=== PATIENT | female | born 1990 | race Two or more races ===

== ENCOUNTER 2017-07-15 23:49 | Emergency (ER) | payer SELFPAY ==
[~2017-07-15] VITALS: Ht 167.6 cm; Wt 77.1 kg
[~2017-07-15 23:49] MED LIST: HYDR-971 PO; NAPR500T8 PO
[2017-07-16 00:07] VITALS: BP 135/85
[2017-07-16] MEDS ORDERED: PRED50TA PO (00:27)
[2017-07-16] MEDS ORDERED: DEXAMETHASONE SOD PHOS 20 MG/5 ML VIAL. ONE (00:27)
--- NOTE | 2017-07-16 00:27 | PHYS DOC ---
Past Medical History Past Medical History: No Pertinent History Past Surgical History: No Surgical History Alcohol Use: None Drug Use: None Adult General Chief Complaint Chief Complaint: ITCHING HPI HPI Patient is a 27 year old F who presents with generalized rash. Patient states she ate sausage yesterday and developed the rash and then ate the same sausage again today and developed a urticarial rash that itches. Patient denies any shortness of breath or chest pain. Patient denies any difficult swallowing or tongue swelling. Patient has no other complaints. Review of Systems Review of Systems GEN: Rash HEENT: Denies blurred vision, sore throat CV: Denies chest pain RESP: Denies shortness of air, cough GI: Denies n/v/d NEURO: Denies confusion, dizziness MSK: Denies weakness, joint pain/swelling Current Medications Current Medications Current Medications Medications (Trade) Dose Ordered Sig/Mihir Start Time Stop Time Status Last Admin Dose Admin Dexamethasone Sodium Phosphate (Decadron) 10 mg 1X ONCE 07/16/17 00:45 07/16/17 00:46 UNV 07/16/17 00:38 10 MG Diphenhydramine HCl (Benadryl) 50 mg 1X ONCE 07/16/17 00:45 07/16/17 00:46 DC 07/16/17 00:38 50 MG Famotidine (Pepcid) 20 mg 1X ONCE 07/16/17 00:45 07/16/17 00:46 DC 07/16/17 00:38 20 MG Allergies Allergies Allergies Coded Allergies Type Severity Reaction Last Updated Verified No Known Drug Allergies 01/27/16 No Physical Exam Physical Exam GEN.: No apparent distress. Alert and oriented. HEENT: Head is normocephalic, atraumatic NECK: Supple. LUNGS: CTAB. HEART: RRR, S1, S2 present. Peripheral pulses intact ABDOMEN: Soft, nontender. Positive bowel sounds. EXTREMITIES: Without any cyanosis. NEUROLOGIC: Normal speech, normal tone PSYCHIATRIC: Normal affect, normal mood. SKIN: Urticarial rash generalized Current Patient Data Vital Signs Vital Signs Date Time Temp Pulse Resp B/P (MAP) Pulse Ox O2 Delivery O2 Flow Rate FiO2 07/16/17 00:07 98.2 91 16 99 Room Air 98.2 EKG EKG [] Radiology/Procedures Radiology/Procedures [] Course & Med Decision Making Course & Med Decision Making Pertinent Labs and Imaging studies reviewed. (See chart for details) ED course: Patient was seen and examined emergency room 50 mg of Benadryl, 10 mg of Decadron, 20 minutes Pepcid were ordered 0049: On reevaluation patient stated much better and is stable for discharge. MDM: After reviewing the chart, CC/HPI/PMH, physical exam, I do not believe the patient has a significant allergic reaction warranting further workup and/or admission at this time. I do not believe the patient having acute anaphylaxis. I believe patient stable for discharge. Additional verbal discharge instructions were provided to the patient and that if symptoms get worse or any new symptoms arise that are worrisome to the patient she is to return to the emergency room immediately [] Dragon Disclaimer Dragon Disclaimer This electronic medical record was generated, in whole or in part, using a voice recognition dictation system. Departure Departure Impression: Primary Impression: Allergic reaction Additional Impression: Urticaria Disposition: 01 HOME, SELF-CARE Condition: IMPROVED Referrals: VIVIANA MURRIETA MD (PCP) Patient Instructions: Allergies, Generic Additional Instructions: Please follow-up with your family physician in the next one to 2 days and return symptoms increase Scripts Prednisone (PREDNISONE) 50 Mg Tablet 1 TAB PO DAILY, #5 TAB Prov: GREG DOHERTY DO 07/16/17 Problem Qualifiers GREG DOHERTY DO Jul 16, 2017 00:27
[2017-07-16] MEDS ORDERED: DEXAMETHASONE SOD PHOS 4 MG/ML VIAL IV ONE (00:45)
[2017-07-16] MEDS ORDERED: diphenhydrAMINE HCL 25 MG CAPSULE PO ONE (00:45)
[2017-07-16] MEDS ORDERED: FAMOTIDINE 20 MG TABLET. PO ONE (00:45)
[2017-07-16] MEDS ORDERED: DEXAMETHASONE SOD PHOS 4 MG/ML VIAL IM ONE (00:45)
== END 2017-07-16 00:51 | disposition home or self-care (01) ==
LOC: ER 23:49
DX: T78.1XXA Other adverse food reactions, not elsewhere classified, initial encounter (principal); L50.9 Urticaria, unspecified; X58.XXXA Exposure to other specified factors, initial encounter
CPT/HCPCS: 96372; 99283; J1100; Q0163